=== PATIENT | male | born 1980 | race African-American/Black ===

== ENCOUNTER 2017-04-11 03:49 | Emergency (ER) | payer MEDICAID, OTHER ==
[~2017-04-11] VITALS: Ht 182.9 cm; Wt 90.0 kg
[~2017-04-11 03:49] MED LIST: AMLO5TAB4 PO; AMOX1TAB16 PO; CELL2 PO; GLIP5TAB12 PO; MULT-1146 PO; PRED5TAB48 PO; PROG1 PO; SULF1TAB48 PO
[2017-04-11] MEDS ORDERED: SODIUM CHLORIDE 0.9% 1,000 ML IV ONE (04:03)
[2017-04-11] MEDS ORDERED: ASPIRIN 81MG TABLET PO ONE (04:15)
[2017-04-11 04:26] LABS: HEMOGLOBIN. 11.6 g/dL (14.0-18.0); MEAN CORPUSCULAR HEMOGLOBIN 27.1 pg (28.0-32.0); MEAN CORPUSCULAR VOLUME 79.4 fL (80.0-94.0); MEAN PLATELET VOLUME 7.7 fl (7.4-10.4); PLATELET 189 x1000/uL (130-400); RED BLOOD CELL COUNT 4.28 mill/uL (4.7-6.1); RED CELL DISTRIBUTION WIDTH 13.6 % (11.6-14.6)
[2017-04-11 04:37] LABS: PARTIAL THROMBOPLASTIN TIME 26.8 sec (23.4-31.0); PROTHROMBIN TIME 10.3 sec (9.4-11.6)
[2017-04-11] MEDS ORDERED: ONDANSETRON HCL 4MG/2ML VIAL IV STA (04:45)
[2017-04-11 04:46] LABS: CARBON DIOXIDE 27 mEq/L (21-32); CHLORIDE 103 mEq/L (98-107); ETHANOL BLOOD < 10 mg/dL; TROPONIN I < 0.02 ng/mL (0.00-0.04)
[2017-04-11 05:47] LABS: ATYPICAL LYMPHOCYTES 1; PLATELET ESTIMATE NORMAL
[2017-04-11] MEDS ORDERED: IPRATROPIUM/ALBUTEROL 0.5-3(2.5)MG/3ML NEB INH PRN (06:45)
[2017-04-11] MEDS ORDERED: TRAMADOL 50MG TABLET PO PRN (06:45)
[2017-04-11] MEDS ORDERED: DIPHENHYDRAMINE 50MG/ML VIAL IV PRN (06:45)
[2017-04-11] MEDS ORDERED: ZOLPIDEM TARTRATE 5MG TABLET PO PRN (06:45)
[2017-04-11] MEDS ORDERED: MAGNESIUM/ALUMINUM HYDROXIDE/SIMETHICONE 30ML UDC PO PRN (06:45)
[2017-04-11] MEDS ORDERED: MORPHINE SULFATE 2 MG/ML CPJ (NOT FOR IM USE) IV PRN (06:45)
[2017-04-11] MEDS ORDERED: NA PHOS,M-B/NA PHOS,DI-BA ENEMA 118ML PR PRN (06:45)
[2017-04-11] MEDS ORDERED: GUAIFENESIN 200MG/10ML SUGAR FREE UDC PO PRN (06:45)
[2017-04-11] MEDS ORDERED: ACETAMINOPHEN 325MG TABLET PO PRN (06:45)
[2017-04-11] MEDS ORDERED: NITROGLYCERIN 0.4MG TABLET SL SL PRN (06:45)
[2017-04-11] MEDS ORDERED: DOCUSATE SODIUM 100MG CAPSULE PO PRN (06:45)
[2017-04-11] MEDS ORDERED: CLONIDINE 0.1MG TABLET PO PRN (06:45)
[2017-04-11] MEDS ORDERED: LORAZEPAM 2MG/ML CPJ IV PRN (06:45)
[2017-04-11] MEDS ORDERED: ONDANSETRON HCL 4MG/2ML VIAL IV PRN (06:45)
[2017-04-11 07:15] LABS: C REACTIVE PROTEIN QUANT 1.8 mg/L (0.0-3.0)
[2017-04-11 07:21] LABS: *AMPHETAMINES SCREEN URINE NEGATIVE (NEGATIVE); *BARBITURATES SCREEN URINE NEGATIVE (NEGATIVE); *BENZODIAZEPINES SCREEN URINE NEGATIVE (NEGATIVE); *COCAINE SCREEN URINE NEGATIVE (NEGATIVE); CANNABINOID URINE SCREEN PRESUMTIVE POSITIVE (NEGATIVE); METHADONE URINE SCREEN NEGATIVE (NEGATIVE); OPIATES URINE SCREEN PRESUMTIVE POSITIVE (NEGATIVE); PHENCYCLIDINE URINE SCREEN NEGATIVE (NEGATIVE)
[2017-04-11] MEDS ORDERED: POTASSIUM CHLORIDE 20MEQ TABLET SR PO NR (07:37)
[2017-04-11 07:43] LABS: FOLIC ACID (FOLATE) SERUM 6.9 ng/mL (>5.38)
[2017-04-11] MEDS ORDERED: AMLODIPINE 5MG TABLET PO SCH (08:30)
[2017-04-11] MEDS ORDERED: MYCOPHENOLATE MOFETIL 500MG TABLET PO SCH (09:00)
[2017-04-11] MEDS ORDERED: TACROLIMUS 1MG CAPSULE PO SCH (09:00)
[2017-04-11] MEDS ORDERED: FAMOTIDINE 20MG/2ML VIAL IV SCH (09:00)
[2017-04-11] MEDS ORDERED: PREDNISONE 5MG TABLET PO SCH (10:45)
[2017-04-11] MEDS ORDERED: ENOXAPARIN 40MG/0.4ML SYR SUBCUT SCH (11:00)
[2017-04-11] MEDS ORDERED: PREDNISONE 5MG TABLET PO NR (11:00)
[2017-04-11 15:11] VITALS: BP 129/101
== END 2017-04-11 15:13 | disposition left against medical advice (07) ==
LOC: ER 03:49 → ENRESERV 17:11 → CANRESERV 17:11 → CANBEDREQ 04-12 02:19
DX: R07.89 Other chest pain (principal); N17.9 Acute kidney failure, unspecified; R10.13 Epigastric pain; I11.9 Hypertensive heart disease without heart failure; E11.9 Type 2 diabetes mellitus without complications; D64.9 Anemia, unspecified; E87.2 Acidosis; E44.1 Mild protein-calorie malnutrition; Z68.26 Body mass index [BMI] 26.0-26.9, adult; Z94.1 Heart transplant status
CPT/HCPCS: 36415; 71010; 76770; 80053; 80061; 80305; 82607; 82746; 82962; 83036; 83540; 83550; 83605; 83690; 83880; 84484; 85025; 85610; 85651; 85730; 86140; 87040; 93005; 93970; 96372; 96374; 96375; 99285; G0482; J1650; J2405; J3490; J7030; J7512; Z7610; J7507; J7517